=== PATIENT | female | born 1950 | race Caucasian/White ===

== ENCOUNTER 2022-08-14 11:31 | Emergency (ER) | payer MEDICARE, BC, SELFPAY ==
--- NOTE | ~2022-08-14 | XR_ITS ---
EXAMINATION: XR chest 2V DATE: 08/14/2022 12:16 INDICATION: Cough. TECHNIQUE: Frontal and lateral views of the chest were obtained. COMPARISON: Chest single view 07/04/2017 FINDINGS: There is mild atelectasis in left lower lung zone. No pleural effusion or pneumothorax. The heart size is normal. IMPRESSION: 1. Mild atelectasis in left lower lung zone. Reviewed, dictated and finalized at location A. COMMUNICATIONS SUPPORT
[2022-08-14 11:46] VITALS: BP 129/75; PULSE 74; RESP 18; TEMP 36.7; O2SAT 97
--- NOTE | 2022-08-14 12:03 | ED.URI ---
HPI - URI/Sore Throat General Chief Complaint: Upper Respiratory Infection Stated Complaint: congestion,cough Time Seen by Provider: 08/14/22 11:36 Source: patient Mode of arrival: ambulatory Limitations: no limitations History of Present Illness HPI Narrative: 72-year-old female presents to [facility] with complaints of nasal congestion, cough, intermittent wheezing and left ear pressure for the past 2 days. Patient has been taking rwrg-[id number]-[id number] Sudafed and Robitussin with minimal relief. Patient is a smoker. Patient reports that she takes Remicade due to history of Crohn's and her primary care provider requested that she receive a COVID and influenza test. Patient reports that she completed a negative home COVID test today. Patient denies fever, body aches, chills, nausea, vomiting or diarrhea or shortness of breath MD elicited complaint: rhinorrhea and nasal congestion Onset (ago): day(s) (2) Able to tolerate fluids by mouth: Yes Exacerbating factors: nothing Relieving factors: nothing Treatments prior to arrival: cold medicine Related Data Home Medications Medication Instructions Recorded Confirmed atorvastatin 80 mg tablet mg 08/14/22 clopidogrel 75 mg tablet mg 08/14/22 pantoprazole 20 mg tablet,delayed mg PO 08/14/22 release Allergies Allergy/AdvReac Type Severity Reaction Status Date / Time Penicillins Allergy Unknown Verified 07/04/17 18:50 Review of Systems Constitutional: Constitutional: Denies chills, Denies fatigue, Denies fever(s) and Denies weakness ENT: Denies vertigo, Denies dizziness, Denies epistaxis, Reports nasal congestion and Denies sore throat Cardiovascular: Cardiovascular: Denies chest pain Respiratory: Respiratory: Reports cough, Denies dyspnea and Reports wheezing Gastrointestinal: Gastrointestinal: Denies diarrhea, Denies nausea and Denies vomiting Integumentary/Breasts: Skin/Breast: Denies rash PMFSH Social History Social History (Updated 08/14/22 @ 12:05 by Becky Ervin APRN) Smoking status: Current every day smoker Comments At time of signature, I agree with nursing past medical, surgical, social and family history. There is no relevant family history pertinent to the presenting complaint. Exam Const: General: healthy appearing and no acute distress Nutritional Appearance: well nourished Orientation/consciousness: patient oriented x3 Limitations: no limitations HENMT: Head: normal to inspection Ears: external ears normal, TM's normal bilaterally and EAC's normal Face and sinus: normal facial exam Mouth: Yes lip normal Throat: posterior oropharynx normal and uvula midline Other: Mild nasal congestion noted bilaterally Eyes: Conjunctivae: conjunctivae normal Resp: Effort & Inspection: normal respiratory effort, not labored and not tachypneic Auscultation: diminished lung sounds diffuse Cardio: Rate: regular rate Rhythm: regular rhythm Heart sounds: no murmurs Skin: General skin exam: normal color Rashes: no rashes Neuro: General: patient oriented x3 Speech: normal speech Psych: Affect: normal affect Attitude: cooperative Course Course Level of Care: Express Care Visit Vital Signs Vital signs: Vital Signs Temperature 36.7 C 08/14/22 11:46 Pulse Rate 74 08/14/22 11:46 Respiratory Rate 18 08/14/22 11:46 Blood Pressure 129/75 08/14/22 11:46 Pulse Oximetry 97 08/14/22 11:46 Oxygen Delivery Room Air 08/14/22 11:46 Temperature 36.7 C 08/14/22 11:46 Pulse Rate 74 08/14/22 11:46 Respiratory Rate 18 08/14/22 11:46 Blood Pressure 129/75 08/14/22 11:46 Pulse Oximetry 97 08/14/22 11:46 Oxygen Delivery Room Air 08/14/22 11:46 MDM - URI/Sore Throat MDM Narrative Medical decision making narrative: Discussed chest x-ray results with patient. Instructed patient to follow-up with primary care provider concerning chest x-ray results and current symptoms. Patient agrees to take the prescriptio
== END 2022-08-14 12:42 | disposition home or self-care (01) ==
PROVIDERS: Emergency Provider Nurse Practitioner Family
DX: J06.9 Acute upper respiratory infection, unspecified (principal); J98.11 Atelectasis; F17.200 Nicotine dependence, unspecified, uncomplicated; K50.90 Crohn's disease, unspecified, without complications
CPT/HCPCS: 71046; 87804; 99213; G0463

== ENCOUNTER 2022-09-21 17:37 | Emergency (ER) | payer MEDICARE, BC, SELFPAY ==
--- NOTE | ~2022-09-21 | XR_ITS ---
EXAMINATION: XR knee LT min 4V DATE: 09/21/2022 18:08 INDICATION: Left knee trauma TECHNIQUE: Anteroposterior, 2 oblique, sunrise and crosstable lateral views of the left knee were obt ained COMPARISON: None. FINDINGS: Alignment is normal. No fracture. Joint spaces appear normal on nonweightbearing imaging. Suggestion of subarticular cystlike change indicative of overlying chondromalacia at the medial side of the lat eral trochlea on the sunrise projection. No joint effusion/layering lipohemarthrosis. Soft tissues ar e unremarkable. IMPRESSION: 1. No left knee joint effusion or acute osseous abnormality. Reviewed, dictated and finalized at location A. [facility] [employer]
--- NOTE | 2022-09-21 17:44 | ED.LOWEXIN ---
HPI - Extremity Injury (Lower) General Chief Complaint: Extremity Injury, Lower Stated Complaint: Lt Knee Pain Due to Fall Time Seen by Provider: 09/21/22 17:44 Source: patient Mode of arrival: ambulatory Limitations: no limitations History of Present Illness HPI Narrative: 72-year-old female presents with complaint of pain to left knee. Patient reports that she was carrying laundry basket full of clothes today and the handle of the laundry basket broke causing her to fall onto her left knee. Patient is ambulatory with slight limp. Reports pain is worse when going down stairs. Did not take any vwzk-aad-[id number] pain medications prior to arrival she did not feel that she needed it. Range of motion and distal neurovascularly intact. All systems reviewed and negative except as noted above. Related Data Home Medications Medication Instructions Recorded Confirmed atorvastatin 80 mg tablet mg 08/14/22 clopidogrel 75 mg tablet mg 08/14/22 pantoprazole 20 mg tablet,delayed mg PO 08/14/22 release Remicade See Rx Instructions .Route .COMPLEX 09/21/22 09/21/22 aspirin 81 mg capsule 81 mg PO DAILY 09/21/22 09/21/22 Allergies Allergy/AdvReac Type Severity Reaction Status Date / Time Penicillins Allergy Unknown Unknown Verified 09/21/22 17:54 Review of Systems Review of Systems: CONSTITUTIONAL: Denies fever, chills, or sweats. EYES: Denies visual changes, redness, or discharge. ENT: Denies rhinorrhea, congestion, sore throat, or otalgia. CARDIOVASCULAR: Denies chest pain, palpitations, or edema. RESPIRATORY: Denies cough or dyspnea. GASTROINTESTINAL: Denies abdominal pain, nausea, vomiting, or diarrhea. GENITOURINARY: Denies dysuria or hematuria. SKIN: Denies rash or itching. MUSCULOSKELETAL: Reports pain to left knee. NEUROLOGIC: Denies headache, numbness, or weakness. PSYCHIATRIC: Denies anxiety or depression. All other systems reviewed are negative, except as documented in HPI. PMFSH Social History Social History (Updated 08/14/22 @ 12:05 by Becky Ervin, BABAK) Smoking status: Current every day smoker Comments At time of signature, agree with nursing past medical, surgical, social and family history. There is no relevant family history pertinent to the presenting complaint. Exam Narrative: GENERAL: This is a well-nourished, well-developed patient, in no apparent distress. HEAD: normocephalic, atraumatic. EYES: PERRL. Sclera clear/white. Vision is grossly intact. EARS: External ears normal NOSE: External nose normal NECK: Neck supple, non-tender without lymphadenopathy, masses or thyromegaly. CARDIOVASCULAR: Regular rate and rhythm without murmurs, gallops, or rubs. RESPIRATORY: Clear to auscultation. Breath sounds equal bilaterally. No wheezes, rales, or rhonchi. SKIN: warm, Dry, intact with no suspicious lesions or rash, good texture and turgor. NEURO: awake, alert, and oriented to person, place and time. There were no obvious focal neurologic abnormalities. EXTREMITIES: Tender to anterior aspect knee over patella. No swelling noted. No instability. Negative anterior posterior drawer testing. Course Course Level of Care: Express Care Visit Vital Signs Vital signs: Reviewed MDM - Extremity Injury (Lower) MDM Narrative Medical decision making narrative: Patient is aware of diagnosis, understands and agrees to treatment plan. Anticipatory guidance given. Patient agrees to follow-up as directed and is aware of reasons to seek care at the emergency department. Portions of this record may have been created with voice recognition software discussed x-ray results with pt and her daughter. neg for fx. placed in mauro wrap by KYLE Barber. recommend follow up with PCP if pain not improving. Imaging Data My impression: Agree with radiologist Radiologist's impression: EXAMINATION: XR knee LT min 4V DATE: 09/21/2022 18:08 INDICATION: Left knee trauma TECHNIQUE: Anteroposterior,
[2022-09-21 18:01] VITALS: BP 104/62; PULSE 84; RESP 18; TEMP 36.5; O2SAT 96
== END 2022-09-21 18:39 | disposition home or self-care (01) ==
PROVIDERS: Emergency Provider Nurse Practitioner Family
DX: S80.02XA Contusion of left knee, initial encounter (principal); F17.200 Nicotine dependence, unspecified, uncomplicated; W18.39XA Other fall on same level, initial encounter
CPT/HCPCS: 73564; 99213; G0463

== ENCOUNTER 2022-11-23 09:24 | Inpatient (IN) | payer MEDICARE, BC, SELFPAY ==
[2022-11-23] VITALS (24 sets, daily range): BP systolic 79–131; BP diastolic 36–70; PULSE 61–77; RESP 14–22; TEMP 36.8–36.9; O2SAT 94–100; BMI 24.6
--- NOTE | ~2022-11-23 | XR_ITS ---
EXAMINATION: XR chest 2V DATE: 11/23/2022 10:05 INDICATION: Weakness TECHNIQUE: frontal and lateral views of the chest were obtained. COMPARISON: Chest radiograph dated 08/14/2022 FINDINGS: No change in mild linear atelectasis/scarring at the left lung base. No new airspace opacities, pulmo nary edema, pleural effusion or pneumothorax. The cardiomediastinal silhouette is normal. Mild thorac ic spondylosis. IMPRESSION: 1. Unchanged mild left basilar atelectasis/scarring. Reviewed, dictated and finalized at location A.
--- NOTE | ~2022-11-23 | CT_ITS ---
CT head without contrast Indication: Headache, weakness COMPARISON: 07/04/2017 Technique: Serial scans were obtained through the brain without the administration of contrast. Dose reduction technique was used on this scan by utilizing automated exposure control and iterative recon struction technique. The dose-length product (DLP) was 605.33 mGy-cm. Findings: There is no evidence of intracranial hemorrhage, mass lesion, or acute infarct. The ventri cles and subarachnoid spaces are unremarkable.. Mild lateral attenuation regions are seen within the periventricular white matter bilaterally, likely representing changes from chronic microvascular isch emic disease. There is no evidence of edema, mass effect or midline shift. The visualized paranasal sinuses and mastoid air cells are clear. Impression: No intracranial hemorrhage, mass, or acute infarct. Mild chronic white matter changes, as above. Reviewed, dictated and finalized at location . Impression: No intracranial hemorrhage, mass, or acute infarct. Mild chronic white matter changes, as above.
--- NOTE | ~2022-11-23 | XR_ITS ---
XR lumbar spine min 4V 11/23/2022 12:09 Indication: Low back pain for 3 days. No acute injury. Procedure: 5 views lumbar spine Comparison: No prior studies for comparison. Findings: There is disc narrowing at L2-3 through L4-5. There is facet hypertrophy at L4-5 and L5-S1. Vertebral body heights are maintained. There is atherosclerosis of the aorta and iliac arteries. The re is levoscoliosis of the lumbar spine centered at L3. Sacral foramen are symmetric. Impression: 1: Severe lumbar spondylosis with levoscoliosis. Reviewed, dictated and finalized at location L. Impression: 1: Severe lumbar spondylosis with levoscoliosis.
--- NOTE | 2022-11-23 09:40 | ECG_ITS ---
Measurements Intervals [place] Rate: 74 P: 66 MA: 143 QRS: -18 QRSD: 66 T: 58 QT: 381 QTc: 425 Interpretive Statements SINUS RHYTHM POSSIBLE LEFT ATRIAL ENLARGEMENT RSR' IN V1 OR V2, PROBABLY NORMAL VARIANT LOW VOLTAGE- PRECORDIAL LEADS BASELINE ARTIFACT- I, III, AVR, AVL, AVF, V1-V6 BORDERLINE ECG NO PREVIOUS ECG AVAILABLE FOR COMPARISON Electronically Signed On 11-23-2022 10:05:23 CDT by Jerardo Kaufman D.O.
[2022-11-23 09:59] LABS: Basophils Percent Auto 0.9 % (0.2-1.2); Eosinophils Percent Auto 0.3 % (0-4.4); Hematocrit 43.3 % (37.0-47.0); Hemoglobin 14.2 g/dL (12.0-15.0); Immature Granulocyte Absolute 0.01 K/mm3 (0.00-0.031); Immature Granulocyte Percent A 0.3 % (0-0.5); Lymphocytes Absolute Auto 0.96 K/mm3 (0.9-3.2); Lymphocytes Percent Auto 27.4 % (18.3-44.2); Mean Corpuscular HGB Conc 32.8 g/dl (32-36); Mean Corpuscular Volume 94.5 fl (80-100); Mean Platelet Volume 9.8 fl (7.4-10.4); Monocytes Absolute Auto 0.6 K/mm3 (0.1-0.6); Monocytes Percent Auto 17.7 % (2.6-8.5); Neutrophils Absolute Auto 1.9 K/mm3 (1.3-6.7); Neutrophils Percent Auto 53.4 % (45.5-73.1); Platelet Count Result 145 k/mm3 (150-375); Red Blood Count 4.58 M/mm3 (4.2-5.4); Red Cell Distribution Width 13.7 % (11.5-14.5); White Blood Count 3.5 K/mm3 (4.5-10.0)
--- NOTE | 2022-11-23 09:59 | ED.GENADULT ---
HPI - General Adult General Chief complaint: Neuro Symptoms/Deficit <Odalys Watkins PA-C - Last Filed: 11/23/22 19:00> Stated complaint: weakness since last night, COLE since <Odalys Watkins PA-C - Last Filed: 11/23/22 19:00> Time Seen by Provider: 11/23/22 09:35 <Odalys Watkins PA-C - Last Filed: 11/23/22 19:00> Source: patient <LIOR Narayanan Last Filed: 11/23/22 19:00> Mode of arrival: ambulatory <LIOR Narayanan Last Filed: 11/23/22 19:00> Limitations: no limitations <LIOR Narayanan Last Filed: 11/23/22 19:00> History of Present Illness HPI narrative: Patient is a 72 y/o female who presents to the ED with multiple complaints. Patient reports feeling generally weak in her arms and legs. Daughter at bedside reports patient had mild difficulty walking and unsteadiness last night as she just felt weak. No focal weakness or weakness in only 1 side of arm or leg. She also reports having a headache for the past couple of days and pain across her lower back. She has been taking Tylenol for the pain without much relief. Patient felt persistently weak this morning prompting her presentation. Patient denies any chest pain, shortness of breath, cough or cold symptoms, numbness, vision changes, abdominal pain, N/V, urinary symptoms, fevers, recent fall or injury. <Odalys Watkins PA-C - Last Filed: 11/23/22 19:00> Related Data Home medications: Home Medications Medication Instructions Recorded Confirmed atorvastatin 80 mg tablet 80 mg PO HS 08/14/22 11/23/22 clopidogrel 75 mg tablet 75 mg PO HS 08/14/22 11/23/22 pantoprazole 20 mg tablet,delayed 20 mg PO DAILY 08/14/22 11/23/22 release aspirin 81 mg capsule 81 mg PO DAILY 09/21/22 11/23/22 cholecalciferol (vitamin D3) 25 25 mcg PO DAILY 11/23/22 11/23/22 mcg (1,000 unit) tablet fexofenadine 180 mg tablet 180 mg PO DAILY PRN Allergy 11/23/22 11/23/22 Symptoms fluticasone propionate 50 1 spray intranasal DAILY 11/23/22 11/23/22 mcg/actuation nasal spray,suspension infliximab 100 mg intravenous 100 mg IV [id number] 11/23/22 11/23/22 solution multivitamin with minerals-folic 1 tablet PO DAILY 11/23/22 11/23/22 acid 0.4 mg tablet pseudoephedrine HCl 60 mg tablet 60 mg PO Q4-6H PRN sinus congestion 11/23/22 11/23/22 <Odalys Watkins PA-C - Last Filed: 11/23/22 19:00> Allergies/adverse reactions: Allergies Allergy/AdvReac Type Severity Reaction Status Date / Time Penicillins Allergy Unknown Unknown Verified 11/23/22 16:43 <Odalys Watkins PA-C - Last Filed: 11/23/22 19:00> Review of Systems Review of Systems: CONSTITUTIONAL: Denies fever, chills, or sweats. EYES: Denies visual changes. ENT: Denies rhinorrhea, congestion, sore throat. CARDIOVASCULAR: Denies chest pain. RESPIRATORY: Denies cough or dyspnea. GASTROINTESTINAL: Denies abdominal pain, nausea, vomiting. GENITOURINARY: Denies dysuria or hematuria. MUSCULOSKELETAL: See HPI. NEUROLOGIC: See HPI. <Odalys Watkins PA-C - Last Filed: 11/23/22 19:00> All systems reviewed & are unremarkable except as noted in HPI and below <Odalys Watkins PA-C - Last Filed: 11/23/22 19:00> [facility] Past Medical History Medical History: Medical History (Updated 11/24/22 @ 07:38 by LOLIS Valera) Carpal tunnel syndrome Crohn disease CVA (cerebral vascular accident) GERD (gastroesophageal reflux disease) History of TIA (transient ischemic attack) HLD (hyperlipidemia) Shoulder fracture, left <LIOR Narayanan Last Filed: 11/23/22 19:00> Surgical History Surgical History: Surgical History (Updated 11/23/22 @ 19:18 by Karmen Belcher NP) H/O cardiac radiofrequency ablation H/O cataract extraction History of appendectomy History of colon resection x2 due to Crohn's disease <Odalys Watkins PA-C - Last Filed: 11/23/22 19:0
[2022-11-23 10:07] LABS: Alanine Aminotransferase 48 U/L (6-35); Albumin Level 4.7 g/dL (3.5-5.1); Alkaline Phosphatase 96 U/L (38-126); Anion Gap 10 mmol/L (8-16); Aspartate Amino Transferase 71 U/L (14-36); Bilirubin,Total 1.4 mg/dL (0.2-1.3); Blood Urea Nitrogen 10 mg/dL (7-17); Calcium 8.8 mg/dL (8.4-10.2); Carbon Dioxide 25 mmol/L (22-30); Chloride 99 mmol/L (98-107); Estimated CRCL calculation 35 ml/min; Estimated Glomerular Filt Rate 49; Glucose 129 mg/dL (65-110); Potassium 4.3 mmol/L (3.4-5.0); Sodium 134 mmol/L (137-145)
[2022-11-23 10:39] LABS: Lactic Acid Reflex 1.2 mmol/L (0.7-2.0); Magnesium 1.8 mg/dL (1.6-2.3); Prothrombin Time 13.2 Seconds (11.1-14.7)
[2022-11-23 10:40] LABS: Partial Thromboplastin Time 34.3 SECONDS (22.3-36.8)
[2022-11-23] MEDS: SODIUM CHLORIDE 0.9% IV 1,000 ML 999 ML IV CONT ×2 (10:46→12:49)
[2022-11-23 10:51] LABS: Troponin I < 0.012 ng/mL (0.000-0.034)
[2022-11-23 11:09] LABS: Appearance Urine Cloudy (Clear); Bacteria Urine Rare /hpf; Bilirubin Urine Negative (Negative); Blood Urine Negative (Negative); Color Urine Yellow (Yellow); Glucose Urine UA Negative (Negative); Hyaline Casts Urine Present /lpf; Ketones Urine 1+ mg/dL (Negative); Leukocyte Esterase Ur 1+ LEU/UL (Negative); Mucus Urine Present /lpf; Nitrate Urine Negative (Negative); Non Pathogenic Casts >20; Protein Urine 1+ mg/dL (Negative); Specific Grav Ur 1.019 (1.001-1.035); Squamous Epithelial Cell Urine Moderate /hpf (Few)
[2022-11-23 11:10] LABS: Add Urine Microscopic? YES
[2022-11-23 11:37] LABS: Influenza A QL RT-PCR Negative (Negative); Influenza B QL RT-PCR Negative (Negative); SARS-CoV-2 RNA PCR Positive (Negative)
[2022-11-23] MEDS: ACETAMINOPHEN 500 MG TABLET 1000 MG PO (11:49)
--- NOTE | 2022-11-23 14:33 | PM.IMHP ---
H&P: HPI History of Present Illness Date/Time: 11/23/22 14:33 Chief Complaint: Weakness Narrative: this is a 72-year-old female patient who came to the emergency room with multiple complaints. The patient was complaining of body aches and muscle wakes with generalized weakness. The daughter was at the bedside earlier in stating that the patient had difficulty walking and was unsteady last night. She had no focal weakness. She reported a headache over the last couple days. She denied any sore throat. She denies any cough. No nausea vomiting or diarrhea. No urinary symptoms. The patient has been taking Tylenol for the discomfort without much relief. The patient felt progressively more weak this morning. She denied any chest pain or palpitations. Her white count was 3.5. Platelet count 145. Sodium is 134 and creatinine 1.10. She previously had a normal creatinine. Glucose is 129. Total bilirubin is 1.4 with AST 71. The patient was found to be positive for UTI. She is also found to be positive for COVID. EKG was sinus rhythm. Chest x-ray unchanged mild left basilar atelectasis scarring. Head CT was read as no intracranial hemorrhage mass or acute infarct. Mild chronic white matter changes. Lumbar spine severe lumbar spondylosis with levoscoliosis. The patient was given 2 L of IV fluids and Tylenol. Her lowest blood pressure was 79/66. However it did improve with 2 L of fluid has come up to 115/56. The patient is currently on room air without any distress. The patient stated that she has been fully vaccinated for COVID. She stated that she has no known contacts that were COVID positive. I did explain to her that she was positive for COVID today. The patient was given Levaquin for the UTI.The patient is being admitted to observation status on the date of service of 11/23/2022. Review of Systems Review of Systems: All systems reviewed & are unremarkable except as noted in HPI and below Constitutional: Constitutional: Reports as per HPI and Reports no additional constitutional complaints Eyes: Eyes: Reports as per HPI and Reports no additional eye complaints ENT: Reports system reviewed and no additional complaints, except as documented and Reports Normal hearing present Cardiovascular: Cardiovascular: Reports no additional cardiovascular complaints Respiratory: Respiratory: Reports no additional respiratory complaints and Reports no additional respiratory complaints Gastrointestinal: Gastrointestinal: Reports as per HPI and Reports no additional gastrointestinal complaints Musculoskeletal: Musculoskeletal: Reports no additional musculoskeletal complaints Integumentary/Breasts: Skin/Breast: Reports system reviewed and no additional complaints, except as docu and Reports as per HPI Neurologic: Reports system reviewed and no additional complaints, except as documented, Reports as per HPI and Reports Normal hearing present Psychiatric: Psychiatric: Reports no additional psychiatric complaints and Reports as per HPI Endocrine: Endocrine: Reports no additional endocrine complaints Hematologic/Lymphatic: Hematologic/Lymphatic: Reports no additional hematologic/lymphatic complaints Allergic/Immunologic: Allergic/Immunologic: Reports no additional allergic/immunologic complaints [facility] Past Medical History Medical History (Updated 11/23/22 @ 19:18 by Karmen Belcher NP) Carpal tunnel syndrome Crohn disease CVA (cerebral vascular accident) GERD (gastroesophageal reflux disease) History of TIA (transient ischemic attack) HLD (hyperlipidemia) Shoulder fracture, left Surgical History Surgical History (Updated 11/23/22 @ 19:18 by Karmen Belcher NP) H/O cardiac radiofrequency ablation H/O cataract extraction History of appendectomy History of colon resection x2 due to Crohn's disease Family History Family History Father Heart disease Sibling He
[2022-11-23] MEDS: SODIUM CHLORIDE 0.9% IV 1,000 ML 100 ML IV CONT (15:33)
--- NOTE | 2022-11-23 16:20 | ADMGEN ---
This patient, Allison Lopez, was admitted to Medical Room 245-. Patient/family oriented to hospital policies and general routines including ID bracelet, bed and alarms, visiting hours, pain management, procedures, bathroom and other care routines, personal items, smoking policy, room service/diet, and visiting hours. Information on how to activate the Rapid Response Team has been discussed. Patient/Family are encouraged to report perceived risks to care and to ask questions if they do not understand what they are told or what they should do.
[2022-11-23] MEDS: ACETAMINOPHEN 325 MG TABLET 650 MG PO ×2 (17:34→22:24)
[2022-11-23] MEDS: ATORVASTATIN 40 MG TABLET 80 MG PO (20:43)
[2022-11-23] MEDS: CLOPIDOGREL BISULFATE 75 MG TABLET PO (20:43)
[2022-11-24] VITALS (15 sets, daily range): BP systolic 71–123; BP diastolic 49–69; PULSE 57–96; RESP 16; TEMP 36.4–36.9; O2SAT 94–98
[2022-11-24 05:05] LABS: Basophils Percent Auto 0.4 % (0.2-1.2); Eosinophils Percent Auto 0.4 % (0-4.4); Hematocrit 40.9 % (37.0-47.0); Hemoglobin 13.1 g/dL (12.0-15.0); Immature Granulocyte Absolute 0.03 K/mm3 (0.00-0.031); Immature Granulocyte Percent A 1.1 % (0-0.5); Immature Platelet Fraction Pct 3.9 % (0.9-11.2); Lymphocytes Absolute Auto 1.43 K/mm3 (0.9-3.2); Lymphocytes Percent Auto 53.6 % (18.3-44.2); Mean Corpuscular Hemoglobin 31.1 pg (26-34); Mean Corpuscular Volume 97.1 fl (80-100); Monocytes Absolute Auto 0.5 K/mm3 (0.1-0.6); Monocytes Percent Auto 17.6 % (2.6-8.5); Neutrophils Absolute Auto 0.7 K/mm3 (1.3-6.7); Neutrophils Percent Auto 26.9 % (45.5-73.1); Platelet Count Result 125 k/mm3 (150-375); Red Blood Count 4.21 M/mm3 (4.2-5.4); White Blood Count 2.7 K/mm3 (4.5-10.0)
[2022-11-24 05:14] LABS: Alanine Aminotransferase 41 U/L (6-35); Albumin Level 3.9 g/dL (3.5-5.1); Alkaline Phosphatase 71 U/L (38-126); Anion Gap 4 mmol/L (8-16); Aspartate Amino Transferase 67 U/L (14-36); Bilirubin,Total 1.1 mg/dL (0.2-1.3); Blood Urea Nitrogen 12 mg/dL (7-17); Calcium 8.2 mg/dL (8.4-10.2); Carbon Dioxide 26 mmol/L (22-30); Chloride 108 mmol/L (98-107); Estimated CRCL calculation 43 ml/min; Estimated Glomerular Filt Rate > 60; Glucose 92 mg/dL (65-110); Magnesium 1.8 mg/dL (1.6-2.3); Potassium 4.6 mmol/L (3.4-5.0); Sodium 138 mmol/L (137-145)
[2022-11-24 05:15] LABS: Lactic Acid Reflex 0.7 mmol/L (0.7-2.0)
[2022-11-24] MEDS: CHOLECALCIFEROL 1,000 UNITS TABLET 1000 UNITS PO (08:48)
[2022-11-24] MEDS: ENOXAPARIN 40 MG/0.4 ML SYRINGE SUB-Q (08:48)
[2022-11-24] MEDS: ASPIRIN 81 MG ENTERIC TABLET PO (08:48)
[2022-11-24] MEDS: FLUTICASONE PROPIONATE 0.05% NA SPR 16 GM BTL (*BKC) 1 SPRAY NASAL (08:49)
[2022-11-24] MEDS: THERAPEUTIC MULTIVITAMINS/MINERALS TAB (*BKC) 1 TABLET PO (08:50)
[2022-11-24] MEDS: PANTOPRAZOLE SOD SESQUIHYDRATE 20 MG TAB PO (08:50)
[2022-11-24] MEDS: ACETAMINOPHEN 325 MG TABLET 650 MG PO ×2 (08:50→21:27)
--- NOTE | 2022-11-24 15:10 | PM.IMPN ---
Progress Note: A&P Assessment and Plan (1) COVID-19: Code(s): U07.1 - COVID-19 Status: Acute Assessment and Plan: Presented to the ED with generalized weakness, body aches Tested positive on 11/23/22 Contact and droplet isolation supportive care Currently on room air albuterol inhaler Tylenol p.r.n. liver enzymes are mildly elevated, and trending down (2) UTI (urinary tract infection): Qualifiers: Hematuria presence: without hematuria Urinary tract infection type: acute cystitis Qualified Code(s): N30.00 - Acute cystitis without hematuria Code(s): N39.0 - Urinary tract infection, site not specified Status: Acute Assessment and Plan: UA appears to be infectious No complaints of urinary dysfunction, however with weakness, and gait instablitiy will treat continue with Levaquin blood cultures pending urine cultures pending Adjust antibiotic with culture results and sensitivities (3) Orthostatic hypotension: Code(s): I95.1 - Orthostatic hypotension Status: Acute Assessment and Plan: Supine 111/57, sitting 88/67, standing 87/36, repeat showed hypotension with standing Start patient on midodrine, if fluids are not affective Fluid bolus given in ED, repeat 1 L bolus as she was complaining of diarrhea over the last day or so Could also be dehydration related Repeat orthostatic blood pressures today (4) Crohn disease: Qualifiers: Digestive disease complication type: without complication Gastrointestinal tract location: unspecified location Qualified Code(s): K50.90 - Crohn's disease, unspecified, without complications Code(s): K50.90 - Crohn's disease, unspecified, without complications Status: Acute Assessment and Plan: Controlled and chronic No signs of exacerbation (5) HLD (hyperlipidemia): Qualifiers: Hyperlipidemia type: moderate mixed hyperlipidemia not requiring statin therapy Qualified Code(s): E78.2 - Mixed hyperlipidemia Code(s): E78.5 - Hyperlipidemia, unspecified Status: Acute Assessment and Plan: Continue with atorvastatin (6) GERD (gastroesophageal reflux disease): Qualifiers: Esophagitis presence: without esophagitis Qualified Code(s): K21.9 - Gastro-esophageal reflux disease without esophagitis Code(s): K21.9 - Gastro-esophageal reflux disease without esophagitis Status: Acute Assessment and Plan: continue with pantoprazole (7) History of TIA (transient ischemic attack): Code(s): Z86.73 - Personal history of transient ischemic attack (TIA), and cerebral infarction without residual deficits Status: Acute Assessment and Plan: continue with Plavix and aspirin Time Spent With Patient Time: 48 minutes Time with patient: Greater than 35 minutes Subjective Date/time seen: 11/24/22 1130 Interval history: 11/24/221129 Patient seems to be doing okay. She denies any current chest pain, shortness a breath, nausea, vomiting, diarrhea constipation. She did state that she was having headache and she also stated that she felt like her gait and walk was doing better as well. She has been able to get up and down to the bathroom and has been doing well getting around the room. Currently waiting grown culture results at this time. Orthostatic blood pressures did note that she is orthostatic was started on midodrine at this time as well. 11/23/22? 14:33 This is a 72-year-old female patient who came to the emergency room with multiple complaints.? The patient was complaining of body aches and muscle wakes with generalized weakness.? The daughter was at the bedside earlier in stating that the patient had difficulty walking and was unsteady last night.? She had no focal weakness.? She reported a headache over the last couple days.?
--- NOTE | 2022-11-24 15:10 | P.PNIM_ITS ---
Progress Note: A&P Assessment and Plan (1) COVID-19: Code(s): U07.1 - COVID-19 Status: Acute Assessment and Plan: * Presented to the ED with generalized weakness, body aches * Tested positive on 11/23/22 * Contact and droplet isolation * supportive care * Currently on room air * albuterol inhaler * Tylenol p.r.n. * liver enzymes are mildly elevated, and trending down (2) UTI (urinary tract infection): Qualifiers: Hematuria presence: without hematuria Urinary tract infection type: acute cystitis Qualified Code(s): N30.00 - Acute cystitis without hematuria Code(s): N39.0 - Urinary tract infection, site not specified Status: Acute Assessment and Plan: * UA appears to be infectious * No complaints of urinary dysfunction, however with weakness, and gait instablitiy will treat * continue with Levaquin * blood cultures pending * urine cultures pending * Adjust antibiotic with culture results and sensitivities (3) Orthostatic hypotension: Code(s): I95.1 - Orthostatic hypotension Status: Acute Assessment and Plan: * Supine 111/57, sitting 88/67, standing 87/36, repeat showed hypotension with standing * Start patient on midodrine, if fluids are not affective * Fluid bolus given in ED, repeat 1 L bolus as she was complaining of diarrhea over the last day or so * Could also be dehydration related * Repeat orthostatic blood pressures today (4) Crohn disease: Qualifiers: Digestive disease complication type: without complication Gastrointestinal tract location: unspecified location Qualified Code(s): K50.90 - Crohn's disease, unspecified, without complications Code(s): K50.90 - Crohn's disease, unspecified, without complications Status: Acute Assessment and Plan: * Controlled and chronic * No signs of exacerbation (5) HLD (hyperlipidemia): Qualifiers: Hyperlipidemia type: moderate mixed hyperlipidemia not requiring statin therapy Qualified Code(s): E78.2 - Mixed hyperlipidemia Code(s): E78.5 - Hyperlipidemia, unspecified Status: Acute Assessment and Plan: * Continue with atorvastatin (6) GERD (gastroesophageal reflux disease): Qualifiers: Esophagitis presence: without esophagitis Qualified Code(s): K21.9 - Gastro-esophageal reflux disease without esophagitis Code(s): K21.9 - Gastro-esophageal reflux disease without esophagitis Status: Acute Assessment and Plan: * continue with pantoprazole (7) History of TIA (transient ischemic attack): Code(s): Z86.73 - Personal history of transient ischemic attack (TIA), and cerebral infarction without residual deficits Status: Acute Assessment and Plan: * continue with Plavix and aspirin Time Spent With Patient Time: 48 minutes Time with patient: Greater than 35 minutes Subjective Date/time seen: 11/24/221129 Interval history: 11/24/221129 Patient seems to be doing okay. She denies any current chest pain, shortness a breath, nausea, vomiting, diarrhea constipation. She did state that she was having headache and she also stated that she felt like her gait and walk was doing better as well. She has been able to get up and down to the bathroom and has been doing well getting around the room. Currently waiting grown culture results at this
[2022-11-24] MEDS: SODIUM CHLORIDE 0.9% IV 1,000 ML 999 ML IV CONT (16:19)
[2022-11-24] MEDS: ATORVASTATIN 40 MG TABLET 80 MG PO (21:27)
[2022-11-24] MEDS: CLOPIDOGREL BISULFATE 75 MG TABLET PO (21:27)
[2022-11-25] VITALS: PULSE 62
[2022-11-25 04:00] VITALS: PULSE 56
[2022-11-25 04:56] VITALS: BP 108/56; PULSE 67; RESP 16; TEMP 36.9; O2SAT 97
[2022-11-25 05:51] LABS: Basophils Percent Auto 0.6 % (0.2-1.2); Eosinophils Percent Auto 1.2 % (0-4.4); Hematocrit 40.8 % (37.0-47.0); Hemoglobin 13.5 g/dL (12.0-15.0); Immature Granulocyte Absolute 0.01 K/mm3 (0.00-0.031); Immature Granulocyte Percent A 0.3 % (0-0.5); Lymphocytes Absolute Auto 2.07 K/mm3 (0.9-3.2); Lymphocytes Percent Auto 60.2 % (18.3-44.2); Mean Corpuscular HGB Conc 33.1 g/dl (32-36); Mean Corpuscular Hemoglobin 31.5 pg (26-34); Mean Corpuscular Volume 95.1 fl (80-100); Monocytes Absolute Auto 0.4 K/mm3 (0.1-0.6); Monocytes Percent Auto 10.2 % (2.6-8.5); Neutrophils Percent Auto 27.5 % (45.5-73.1); Platelet Count Result 122 k/mm3 (150-375); Red Blood Count 4.29 M/mm3 (4.2-5.4); White Blood Count 3.4 K/mm3 (4.5-10.0)
[2022-11-25 06:05] LABS: Alanine Aminotransferase 38 U/L (6-35); Albumin Level 3.7 g/dL (3.5-5.1); Alkaline Phosphatase 68 U/L (38-126); Anion Gap 4 mmol/L (8-16); Aspartate Amino Transferase 64 U/L (14-36); Bilirubin,Total 0.8 mg/dL (0.2-1.3); Blood Urea Nitrogen 15 mg/dL (7-17); Carbon Dioxide 28 mmol/L (22-30); Chloride 105 mmol/L (98-107); Estimated CRCL calculation 43 ml/min; Estimated Glomerular Filt Rate > 60; Glucose 100 mg/dL (65-110); Magnesium 1.7 mg/dL (1.6-2.3); Sodium 137 mmol/L (137-145)
[2022-11-25 08:00] VITALS: PULSE 59
[2022-11-25] MEDS: CHOLECALCIFEROL 1,000 UNITS TABLET 1000 UNITS PO (08:04)
[2022-11-25] MEDS: ASPIRIN 81 MG ENTERIC TABLET PO (08:04)
[2022-11-25] MEDS: MIDODRINE HCL 2.5 MG TABLET PO (08:05)
[2022-11-25] MEDS: PANTOPRAZOLE SOD SESQUIHYDRATE 20 MG TAB PO (08:05)
[2022-11-25] MEDS: ENOXAPARIN 40 MG/0.4 ML SYRINGE SUB-Q (08:05)
[2022-11-25] MEDS: THERAPEUTIC MULTIVITAMINS/MINERALS TAB (*BKC) 1 TABLET PO (08:05)
[2022-11-25] MEDS: FLUTICASONE PROPIONATE 0.05% NA SPR 16 GM BTL (*BKC) 1 SPRAY NASAL (08:05)
--- NOTE | 2022-11-25 08:09 | P.PNIM_ITS ---
Progress Note: A&P Assessment and Plan (1) COVID-19: Code(s): U07.1 - COVID-19 Status: Acute Assessment and Plan: * Presented to the ED with generalized weakness, body aches * Tested positive on 11/23/22 * Contact and droplet isolation * supportive care * Currently on room air * albuterol inhaler * Tylenol p.r.n. * liver enzymes are mildly elevated, and trending down (2) UTI (urinary tract infection): Qualifiers: Hematuria presence: without hematuria Urinary tract infection type: acute cystitis Qualified Code(s): N30.00 - Acute cystitis without hematuria Code(s): N39.0 - Urinary tract infection, site not specified Status: Acute Assessment and Plan: * UA appears to be infectious * No complaints of urinary dysfunction, however with weakness, and gait instablitiy will treat * continue with Levaquin * blood cultures pending * urine cultures pending * Adjust antibiotic with culture results and sensitivities * Still waiting for urine culture (3) Orthostatic hypotension: Code(s): I95.1 - Orthostatic hypotension Status: Acute Assessment and Plan: * Supine 111/57, sitting 88/67, standing 87/36, repeat showed hypotension with standing * Start patient on midodrine, if fluids are not affective * Fluid bolus given in ED, repeat 1 L bolus as she was complaining of diarrhea over the last day or so * Could also be dehydration related * Repeat orthostatic blood pressures today (4) Crohn disease: Qualifiers: Gastrointestinal tract location: unspecified location Digestive disease complication type: without complication Qualified Code(s): K50.90 - Crohn's disease, unspecified, without complications Code(s): K50.90 - Crohn's disease, unspecified, without complications Status: Acute Assessment and Plan: * Controlled and chronic * No signs of exacerbation (5) HLD (hyperlipidemia): Qualifiers: Hyperlipidemia type: moderate mixed hyperlipidemia not requiring statin therapy Qualified Code(s): E78.2 - Mixed hyperlipidemia Code(s): E78.5 - Hyperlipidemia, unspecified Status: Acute Assessment and Plan: * Continue with atorvastatin (6) GERD (gastroesophageal reflux disease): Qualifiers: Esophagitis presence: without esophagitis Qualified Code(s): K21.9 - Gastro-esophageal reflux disease without esophagitis Code(s): K21.9 - Gastro-esophageal reflux disease without esophagitis Status: Acute Assessment and Plan: * continue with pantoprazole (7) History of TIA (transient ischemic attack): Code(s): Z86.73 - Personal history of transient ischemic attack (TIA), and cerebral infarction without residual deficits Status: Acute Assessment and Plan: * continue with Plavix and aspirin Time Spent With Patient Time: 38 minutes Time with patient: Greater than 35 minutes Subjective Date/time seen: 11/25/22 08:09 Interval history: 11/25/22 11/24/22 1130 Patient seems to be doing okay. She denies any current chest pain, shortness a breath, nausea, vomiting, diarrhea constipation. She did state that she was meehan ving headache and she also stated that she felt like her gait and walk was doing better as well. She has been able to get up and down to the bathroom and has been doing well getti
--- NOTE | 2022-11-25 08:09 | PM.IMPN ---
Progress Note: A&P Assessment and Plan (1) COVID-19: Code(s): U07.1 - COVID-19 Status: Acute Assessment and Plan: Presented to the ED with generalized weakness, body aches Tested positive on 11/23/22 Contact and droplet isolation supportive care Currently on room air albuterol inhaler Tylenol p.r.n. liver enzymes are mildly elevated, and trending down (2) UTI (urinary tract infection): Qualifiers: Hematuria presence: without hematuria Urinary tract infection type: acute cystitis Qualified Code(s): N30.00 - Acute cystitis without hematuria Code(s): N39.0 - Urinary tract infection, site not specified Status: Acute Assessment and Plan: UA appears to be infectious No complaints of urinary dysfunction, however with weakness, and gait instablitiy will treat continue with Levaquin blood cultures pending urine cultures pending Adjust antibiotic with culture results and sensitivities Still waiting for urine culture (3) Orthostatic hypotension: Code(s): I95.1 - Orthostatic hypotension Status: Acute Assessment and Plan: Supine 111/57, sitting 88/67, standing 87/36, repeat showed hypotension with standing Start patient on midodrine, if fluids are not affective Fluid bolus given in ED, repeat 1 L bolus as she was complaining of diarrhea over the last day or so Could also be dehydration related Repeat orthostatic blood pressures today (4) Crohn disease: Qualifiers: Gastrointestinal tract location: unspecified location Digestive disease complication type: without complication Qualified Code(s): K50.90 - Crohn's disease, unspecified, without complications Code(s): K50.90 - Crohn's disease, unspecified, without complications Status: Acute Assessment and Plan: Controlled and chronic No signs of exacerbation (5) HLD (hyperlipidemia): Qualifiers: Hyperlipidemia type: moderate mixed hyperlipidemia not requiring statin therapy Qualified Code(s): E78.2 - Mixed hyperlipidemia Code(s): E78.5 - Hyperlipidemia, unspecified Status: Acute Assessment and Plan: Continue with atorvastatin (6) GERD (gastroesophageal reflux disease): Qualifiers: Esophagitis presence: without esophagitis Qualified Code(s): K21.9 - Gastro-esophageal reflux disease without esophagitis Code(s): K21.9 - Gastro-esophageal reflux disease without esophagitis Status: Acute Assessment and Plan: continue with pantoprazole (7) History of TIA (transient ischemic attack): Code(s): Z86.73 - Personal history of transient ischemic attack (TIA), and cerebral infarction without residual deficits Status: Acute Assessment and Plan: continue with Plavix and aspirin Time Spent With Patient Time: 38 minutes Time with patient: Greater than 35 minutes Subjective Date/time seen: 11/25/22 08:09 Interval history: 11/25/22 11/24/22 1130 Patient seems to be doing okay. She denies any current chest pain, shortness a breath, nausea, vomiting, diarrhea constipation. She did state that she was having headache and she also stated that she felt like her gait and walk was doing better as well. She has been able to get up and down to the bathroom and has been doing well getting around the room. Currently waiting grown culture results at this time. Orthostatic blood pressures did note that she is orthostatic was started on midodrine at this time as well. 11/23/22? 14:33 This is a 72-year-old female patient who came to the emergency room with multiple complaints.? The patient was complaining of body aches and muscle wakes with generalized weakness.? The daughter was at the bedside earlier in stating that the patient had difficulty walking and was unsteady last night.? She had no focal weakness.
--- NOTE | 2022-11-25 08:15 | P.DS_ITS ---
DS: Admitting Diagnosis Discharge Date 11/25/2215 Admitting Diagnosis Acute UTI, Covid DS: Discharge Diagnosis Discharge Diagnosis (1) COVID-19: Code(s): U07.1 - COVID-19 Status: Acute Assessment and Plan: * Presented to the ED with generalized weakness, body aches * Tested positive on 11/23/22 * Contact and droplet isolation * supportive care * Currently on room air * albuterol inhaler * Tylenol p.r.n. * liver enzymes are mildly elevated, and trending down (2) UTI (urinary tract infection): Qualifiers: Hematuria presence: without hematuria Urinary tract infection type: acute cystitis Qualified Code(s): N30.00 - Acute cystitis without hematuria Code(s): N39.0 - Urinary tract infection, site not specified Status: Acute Assessment and Plan: * UA appears to be infectious * No complaints of urinary dysfunction, however with weakness, and gait instablitiy will treat * continue with Levaquin * blood cultures pending * urine cultures pending * Adjust antibiotic with culture results and sensitivities * Still waiting for urine culture (3) Orthostatic hypotension: Code(s): I95.1 - Orthostatic hypotension Status: Acute Assessment and Plan: * Supine 111/57, sitting 88/67, standing 87/36, repeat showed hypotension with standing * Start patient on midodrine, if fluids are not affective * Fluid bolus given in ED, repeat 1 L bolus as she was complaining of diarrhea over the last day or so * Could also be dehydration related * Repeat orthostatic blood pressures today (4) Crohn disease: Qualifiers: Digestive disease complication type: without complication Gastrointestinal tract location: unspecified location Qualified Code(s): K50.90 - Crohn's disease, unspecified, without complications Code(s): K50.90 - Crohn's disease, unspecified, without complications Status: Acute Assessment and Plan: * Controlled and chronic * No signs of exacerbation (5) HLD (hyperlipidemia): Qualifiers: Hyperlipidemia type: moderate mixed hyperlipidemia not requiring statin therapy Qualified Code(s): E78.2 - Mixed hyperlipidemia Code(s): E78.5 - Hyperlipidemia, unspecified Status: Acute Assessment and Plan: * Continue with atorvastatin (6) GERD (gastroesophageal reflux disease): Qualifiers: Esophagitis presence: without esophagitis Qualified Code(s): K21.9 - Gastro-esophageal reflux disease without esophagitis Code(s): K21.9 - Gastro-esophageal reflux disease without esophagitis Status: Acute Assessment and Plan: * continue with pantoprazole (7) History of TIA (transient ischemic attack): Code(s): Z86.73 - Personal history of transient ischemic attack (TIA), and cerebral infarction without residual deficits Status: Acute Assessment and Plan: * continue with Plavix and aspirin DS: Summary Hospital Course Hospital Course: Patient is a 70-year-old female with a past medical history of TIA, Crohn's disease, hyperlipidemia, GERD who presented the ED with complaints of body aches, generalized weakness, diarrhea, sore throat. Upon arrival to the ED patient was tested for COVID was noted to be positive. UA was also noted to appear infectious. Urine culture has been pending. Patient was started on IV Levaquin. Pat
--- NOTE | 2022-11-25 08:15 | PM.DS ---
DS: Admitting Diagnosis Discharge Date 11/25/22 0815 Admitting Diagnosis Acute UTI, Covid DS: Discharge Diagnosis Discharge Diagnosis (1) COVID-19: Code(s): U07.1 - COVID-19 Status: Acute Assessment and Plan: Presented to the ED with generalized weakness, body aches Tested positive on 11/23/22 Contact and droplet isolation supportive care Currently on room air albuterol inhaler Tylenol p.r.n. liver enzymes are mildly elevated, and trending down (2) UTI (urinary tract infection): Qualifiers: Hematuria presence: without hematuria Urinary tract infection type: acute cystitis Qualified Code(s): N30.00 - Acute cystitis without hematuria Code(s): N39.0 - Urinary tract infection, site not specified Status: Acute Assessment and Plan: UA appears to be infectious No complaints of urinary dysfunction, however with weakness, and gait instablitiy will treat continue with Levaquin blood cultures pending urine cultures pending Adjust antibiotic with culture results and sensitivities Still waiting for urine culture (3) Orthostatic hypotension: Code(s): I95.1 - Orthostatic hypotension Status: Acute Assessment and Plan: Supine 111/57, sitting 88/67, standing 87/36, repeat showed hypotension with standing Start patient on midodrine, if fluids are not affective Fluid bolus given in ED, repeat 1 L bolus as she was complaining of diarrhea over the last day or so Could also be dehydration related Repeat orthostatic blood pressures today (4) Crohn disease: Qualifiers: Digestive disease complication type: without complication Gastrointestinal tract location: unspecified location Qualified Code(s): K50.90 - Crohn's disease, unspecified, without complications Code(s): K50.90 - Crohn's disease, unspecified, without complications Status: Acute Assessment and Plan: Controlled and chronic No signs of exacerbation (5) HLD (hyperlipidemia): Qualifiers: Hyperlipidemia type: moderate mixed hyperlipidemia not requiring statin therapy Qualified Code(s): E78.2 - Mixed hyperlipidemia Code(s): E78.5 - Hyperlipidemia, unspecified Status: Acute Assessment and Plan: Continue with atorvastatin (6) GERD (gastroesophageal reflux disease): Qualifiers: Esophagitis presence: without esophagitis Qualified Code(s): K21.9 - Gastro-esophageal reflux disease without esophagitis Code(s): K21.9 - Gastro-esophageal reflux disease without esophagitis Status: Acute Assessment and Plan: continue with pantoprazole (7) History of TIA (transient ischemic attack): Code(s): Z86.73 - Personal history of transient ischemic attack (TIA), and cerebral infarction without residual deficits Status: Acute Assessment and Plan: continue with Plavix and aspirin DS: Summary Hospital Course Hospital Course: Patient is a 70-year-old female with a past medical history of TIA, Crohn's disease, hyperlipidemia, GERD who presented the ED with complaints of body aches, generalized weakness, diarrhea, sore throat. Upon arrival to the ED patient was tested for COVID was noted to be positive. UA was also noted to appear infectious. Urine culture has been pending. Patient was started on IV Levaquin. Patient also received fluids for orthostatic hypotension. Patient has been started on midodrine for further support. Currently patient states that she feels better than she did and has no complaints including chest pain, shortness a breath, nausea, vomiting, diarrhea, constipation, weakness or fatigue. She has been up and moving around the room. Liver enzymes were noted to be mildly elevated however are trending down. Patient is stable for discharge for labs and vital signs at this time. Status at Discharge
--- NOTE | 2022-11-25 11:49 | PC.NURSE ---
Spoke to pharmacist at patient's preferred pharmacy regarding 90 day supply of midodrine. Patient had receive phone call from pharmacist needing provider's approval. RN called to verify what was needed. Pharmacist stated, the midodrine is typically a hospital medication but I will remove note regarding provider approval. RN repeated statement to pharmacist to confirm that provider approval was not needed.
--- NOTE | 2022-11-26 09:54 | PC.NURSE ---
Patient called this AM regarding persistent symptoms of diarrhea and low blood pressures at home. Patient discharged yesterday. Notified patient if symptoms continue to persist to return to the ER for further evaluation.
== END 2022-11-25 11:43 | disposition home or self-care (01) | DRG 178 ==
LOC: ANHED 10:39 → ANH3MEDSUR 14:54 → ANH2MED 16:18
PROVIDERS: Nurse Practitioner; Admitting Provider Family Medicine; Emergency Provider Physician Assistant; Visit Provider Nurse Practitioner
DX: U07.1 COVID-19 (principal); K50.90 Crohn's disease, unspecified, without complications; N39.0 Urinary tract infection, site not specified; I95.1 Orthostatic hypotension; E78.5 Hyperlipidemia, unspecified; K21.9 Gastro-esophageal reflux disease without esophagitis; F17.210 Nicotine dependence, cigarettes, uncomplicated; Z86.73 Personal history of transient ischemic attack (TIA), and cerebral infarction without residual deficits; Z90.49 Acquired absence of other specified parts of digestive tract
CPT/HCPCS: 36415; 70450; 71046; 72110; 80053; 81001; 83605; 83735; 84443; 84484; 85025; 85055; 85610; 85730; 87040; 87086; 87088; 87636; 93005; 96361; 96365; 96372; 99285; A9270; G0378; J1650; J1956; J7030

== ENCOUNTER 2022-11-29 12:54 | Emergency (ER) | payer MEDICARE, BC, SELFPAY ==
[2022-11-29] VITALS (17 sets, daily range): BP systolic 109–136; BP diastolic 52–86; PULSE 56–76; RESP 12–20; TEMP 36.4; O2SAT 91–100
[2022-11-29 13:27] LABS: Basophils Percent Auto 0.3 % (0.2-1.2); Eosinophils Percent Auto 0.3 % (0-4.4); Hematocrit 40.4 % (37.0-47.0); Hemoglobin 13.4 g/dL (12.0-15.0); Immature Granulocyte Absolute 0.03 K/mm3 (0.00-0.031); Immature Granulocyte Percent A 0.5 % (0-0.5); Immature Platelet Fraction Pct 6.5 % (0.9-11.2); Lymphocytes Absolute Auto 2.16 K/mm3 (0.9-3.2); Lymphocytes Percent Auto 37.1 % (18.3-44.2); Mean Corpuscular HGB Conc 33.2 g/dl (32-36); Mean Corpuscular Hemoglobin 30.8 pg (26-34); Mean Corpuscular Volume 92.9 fl (80-100); Mean Platelet Volume 9.9 fl (7.4-10.4); Monocytes Absolute Auto 0.6 K/mm3 (0.1-0.6); Monocytes Percent Auto 9.8 % (2.6-8.5); Platelet Count Result 123 k/mm3 (150-375); Red Blood Count 4.35 M/mm3 (4.2-5.4); Red Cell Distribution Width 13.5 % (11.5-14.5); White Blood Count 5.8 K/mm3 (4.5-10.0)
[2022-11-29 13:32] LABS: Alanine Aminotransferase 38 U/L (6-35); Albumin Level 4.3 g/dL (3.5-5.1); Alkaline Phosphatase 65 U/L (38-126); Anion Gap 8 mmol/L (8-16); Aspartate Amino Transferase 64 U/L (14-36); Bilirubin,Total 1.8 mg/dL (0.2-1.3); Blood Urea Nitrogen 10 mg/dL (7-17); Calcium 8.5 mg/dL (8.4-10.2); Carbon Dioxide 24 mmol/L (22-30); Chloride 101 mmol/L (98-107); Estimated CRCL calculation 48 ml/min; Estimated Glomerular Filt Rate > 60; Glucose 118 mg/dL (65-110); Lipase 143 U/L (23-300); Potassium 3.8 mmol/L (3.4-5.0); Sodium 133 mmol/L (137-145)
[2022-11-29 13:40] LABS: Appearance Urine Clear (Clear); Bilirubin Urine Negative (Negative); Blood Urine Negative (Negative); Color Urine Yellow (Yellow); Glucose Urine UA Negative (Negative); Ketones Urine Negative (Negative); Leukocyte Esterase Ur Negative LEU/UL (Negative); Nitrate Urine Negative (Negative); Protein Urine Negative (Negative); Urobilinogen Urine 0.2 mg/dL (<2.0)
[2022-11-29 13:54] LABS: Add Urine Microscopic? NO
--- NOTE | 2022-11-29 14:50 | ED.GENADULT ---
HPI - General Adult General Chief complaint: Nausea/Vomiting/Diarrhea <Conor Prieto PA-C - Last Filed: 11/29/22 19:00> Stated complaint: dehydrated ? <Conor Prieto PA-C - Last Filed: 11/29/22 19:00> Time Seen by Provider: 11/29/22 13:13 <Conor Prieto PA-C - Last Filed: 11/29/22 19:00> Source: patient <LIOR Mcmillan Last Filed: 11/29/22 19:00> Mode of arrival: ambulatory <LIOR Mcmillan Last Filed: 11/29/22 19:00> Limitations: no limitations <Conor Prieto PA-C - Last Filed: 11/29/22 19:00> History of Present Illness HPI narrative: This is a 72-year-old female with PMH of Crohn's disease presents to the ED with chief complaint of diarrhea x3 days. Patient states she was recently admitted for COVID and hypotension. She was discharged 5 days ago. She states that this does not feel like her Crohn's. She states it has been well controlled with Remicade shots monthly. Denies any nausea or vomiting. Denies abdominal pain or bloody diarrhea. She states the stools have just been loose. Endorses 10 episodes of loose stools for the past 3 days. She does specifically mention that it feels like the diarrhea started after she started Levaquin for a UTI that they diagnosed in the hospital. States she stopped this medication yesterday and states that it has let up today. Denies any fevers, chills, chest pain, shortness of breath, cough. <LIOR Mcmillan Last Filed: 11/29/22 19:00> Related Data Home medications: Home Medications Medication Instructions Recorded Confirmed atorvastatin 80 mg tablet 80 mg PO HS 08/14/22 11/23/22 clopidogrel 75 mg tablet 75 mg PO HS 08/14/22 11/23/22 pantoprazole 20 mg tablet,delayed 20 mg PO DAILY 08/14/22 11/23/22 release aspirin 81 mg capsule 81 mg PO DAILY 09/21/22 11/23/22 cholecalciferol (vitamin D3) 25 25 mcg PO DAILY 11/23/22 11/23/22 mcg (1,000 unit) tablet fexofenadine 180 mg tablet 180 mg PO DAILY PRN Allergy 11/23/22 11/23/22 Symptoms fluticasone propionate 50 1 spray intranasal DAILY 11/23/22 11/23/22 mcg/actuation nasal spray,suspension infliximab 100 mg intravenous 100 mg IV [id number] 11/23/22 11/23/22 solution multivitamin with minerals-folic 1 tablet PO DAILY 11/23/22 11/23/22 acid 0.4 mg tablet pseudoephedrine HCl 60 mg tablet 60 mg PO Q4-6H PRN sinus congestion 11/23/22 11/23/22 <Conor Prieto PA-C - Last Filed: 11/29/22 19:00> Allergies/adverse reactions: Allergies Allergy/AdvReac Type Severity Reaction Status Date / Time Penicillins Allergy Unknown Unknown Verified 11/29/22 13:21 <Conor Prieto PA-C - Last Filed: 11/29/22 19:00> Review of Systems Review of Systems: CONSTITUTIONAL: Denies fever, chills, or sweats. EYES: Denies visual changes, redness, or discharge. ENT: Denies rhinorrhea, congestion, sore throat, or otalgia. CARDIOVASCULAR: Denies chest pain, palpitations, or edema. RESPIRATORY: Denies cough or dyspnea. GASTROINTESTINAL: See HPI GENITOURINARY: Denies dysuria or hematuria. SKIN: Denies rash or itching. MUSCULOSKELETAL: Denies back pain, joint pain, or myalgia. NEUROLOGIC: Denies headache, numbness, dizziness, or weakness. PSYCHIATRIC: Denies anxiety or depression. <Conor Prieto PA-C - Last Filed: 11/29/22 19:00> [facility] Past Medical History Medical History: Medical History (Updated 12/01/22 @ 00:00 by Martínez Grace) Carpal tunnel syndrome Crohn disease CVA (cerebral vascular accident) GERD (gastroesophageal reflux disease) History of TIA (transient ischemic attack) HLD (hyperlipidemia) Shoulder fracture, left <LIOR Mcmillan Last Filed: 11/29/22 19:00> Surgical History Surgical History: Surgical History (Updated 11/23/22 @ 19:18 by Karmen Belcher NP) H/O cardiac radiofrequency ablation H/O cataract extraction History of appendectomy History of colon resection x2 due to Crohn's disease <LIOR Mcmillan L
[2022-11-29] MEDS: SODIUM CHLORIDE 0.9% IV 1,000 ML 999 ML IV CONT (15:02)
[2022-11-29 16:58] LABS: Magnesium 1.8 mg/dL (1.6-2.3)
== END 2022-11-29 18:30 | disposition home or self-care (01) ==
PROVIDERS: Emergency Medicine; Emergency Provider Physician Assistant
DX: R19.7 Diarrhea, unspecified (principal); E78.5 Hyperlipidemia, unspecified; F17.210 Nicotine dependence, cigarettes, uncomplicated; Z86.73 Personal history of transient ischemic attack (TIA), and cerebral infarction without residual deficits
CPT/HCPCS: 36415; 80053; 81003; 83690; 83735; 85025; 85055; 96360; 99283; J7030

== ENCOUNTER 2022-11-30 14:05 | Emergency (ER) | payer MEDICARE, BC, SELFPAY ==
[2022-11-30 14:12] VITALS: BP 112/64; PULSE 62; RESP 18; TEMP 36.8; O2SAT 97
[2022-11-30] MEDS: ONDANSETRON HCL ODT 4 MG TABLET PO (15:55)
[2022-11-30 16:06] LABS: Basophils Percent Auto 0.2 % (0.2-1.2); Eosinophils Percent Auto 0.6 % (0-4.4); Hematocrit 36.6 % (37.0-47.0); Hemoglobin 12.2 g/dL (12.0-15.0); Immature Granulocyte Absolute 0.04 K/mm3 (0.00-0.031); Immature Granulocyte Percent A 0.8 % (0-0.5); Immature Platelet Fraction Pct 6.5 % (0.9-11.2); Lymphocytes Absolute Auto 2.03 K/mm3 (0.9-3.2); Lymphocytes Percent Auto 38.3 % (18.3-44.2); Mean Corpuscular HGB Conc 33.3 g/dl (32-36); Mean Corpuscular Hemoglobin 30.9 pg (26-34); Mean Corpuscular Volume 92.7 fl (80-100); Monocytes Absolute Auto 0.5 K/mm3 (0.1-0.6); Monocytes Percent Auto 9.2 % (2.6-8.5); Neutrophils Absolute Auto 2.7 K/mm3 (1.3-6.7); Neutrophils Percent Auto 50.9 % (45.5-73.1); Platelet Count Result 136 k/mm3 (150-375); Red Blood Count 3.95 M/mm3 (4.2-5.4); Red Cell Distribution Width 13.6 % (11.5-14.5); White Blood Count 5.3 K/mm3 (4.5-10.0)
[2022-11-30 16:15] LABS: Alanine Aminotransferase 30 U/L (6-35); Albumin Level 3.7 g/dL (3.5-5.1); Alkaline Phosphatase 66 U/L (38-126); Anion Gap 4 mmol/L (8-16); Aspartate Amino Transferase 47 U/L (14-36); Bilirubin,Total 1.4 mg/dL (0.2-1.3); Blood Urea Nitrogen 8 mg/dL (7-17); Calcium 7.9 mg/dL (8.4-10.2); Carbon Dioxide 26 mmol/L (22-30); Chloride 102 mmol/L (98-107); Estimated Glomerular Filt Rate > 60; Glucose 99 mg/dL (65-110); Potassium 3.2 mmol/L (3.4-5.0); Sodium 132 mmol/L (137-145)
--- NOTE | 2022-11-30 16:39 | ED.GENADULT ---
HPI - General Adult General Chief complaint: Nausea/Vomiting/Diarrhea Stated complaint: diarrhea Time Seen by Provider: 11/30/22 15:32 History of Present Illness HPI narrative: Patient is a 72-year-old female who presents ER with diarrhea. 3 episodes today. She has been having diarrhea for several days and was seen in the ER yesterday. She has been on Levaquin. She currently has COVID. No fevers or chills or sweats. No cough or dyspnea. No additional concerns. She has not tried Imodium. No blood in her stool. Related Data Home Medications Medication Instructions Recorded Confirmed atorvastatin 80 mg tablet 80 mg PO HS 08/14/22 11/23/22 clopidogrel 75 mg tablet 75 mg PO HS 08/14/22 11/23/22 pantoprazole 20 mg tablet,delayed 20 mg PO DAILY 08/14/22 11/23/22 release aspirin 81 mg capsule 81 mg PO DAILY 09/21/22 11/23/22 cholecalciferol (vitamin D3) 25 25 mcg PO DAILY 11/23/22 11/23/22 mcg (1,000 unit) tablet fexofenadine 180 mg tablet 180 mg PO DAILY PRN Allergy 11/23/22 11/23/22 Symptoms fluticasone propionate 50 1 spray intranasal DAILY 11/23/22 11/23/22 mcg/actuation nasal spray,suspension infliximab 100 mg intravenous 100 mg IV [id number] 11/23/22 11/23/22 solution multivitamin with minerals-folic 1 tablet PO DAILY 11/23/22 11/23/22 acid 0.4 mg tablet pseudoephedrine HCl 60 mg tablet 60 mg PO Q4-6H PRN sinus congestion 11/23/22 11/23/22 Allergies Allergy/AdvReac Type Severity Reaction Status Date / Time Penicillins Allergy Unknown Unknown Verified 11/29/22 13:21 Review of Systems Review of Systems: All systems reviewed & are unremarkable except as noted in HPI and below Constitutional: Constitutional: Denies chills, Denies fatigue and Denies fever(s) ENT: Denies nasal congestion and Denies sore throat Respiratory: Respiratory: Denies cough and Denies dyspnea Gastrointestinal: Gastrointestinal: Denies abdominal pain, Reports diarrhea, Reports nausea and Denies vomiting PMF Past Medical History Medical History (Updated 11/30/22 @ 16:41 by Pranay Ray MD) Carpal tunnel syndrome Crohn disease CVA (cerebral vascular accident) GERD (gastroesophageal reflux disease) History of TIA (transient ischemic attack) HLD (hyperlipidemia) Shoulder fracture, left Surgical History Surgical History (Updated 11/23/22 @ 19:18 by Karmen Belcher NP) H/O cardiac radiofrequency ablation H/O cataract extraction History of appendectomy History of colon resection x2 due to Crohn's disease Family History Family History Father Heart disease Sibling Heart disease Diabetes mellitus Social History Social History (Updated 11/23/22 @ 19:20 by Karmen Belcher NP) Social History: she smoked 3-4 cigarettes a cig a day . She has 1 adopted daughter . she is . She is retired from [email or web address] in [facility] . code status full code Years smoked: 30 Smoking status: Current every day smoker Tobacco type: cigarettes Alcohol intake: current Drinks per week: 4 Alcohol use details: occ Substance use: never Lack of Transportation: No Lack of Food: Never True Current Housing: I Have Housing Concerned About Future Housing: No Difficulty Paying Gas/Electric Bills: No Difficulty Paying for Meds: No Currently Unemployed: No Education: High School Diploma/GED Difficulty w/ Childcare or Family Care: No Spiritual care concerns: No Exam Narrative: GENERAL: Well-appearing, well-nourished, and in no acute distress. HEAD: Normocephalic, atraumatic. CHEST: Clear to auscultation. No respiratory distress. HEART: Regular rate and rhythm. Normal peripheral pulses. ABDOMEN: Soft, nontender, nondistended. EXTREMITIES: Normal range of motion. No edema. SKIN: Warm, dry, no rash. NEURO: Alert and oriented x3. PSYCH: Normal mood and affect. Course Course Emergency Course: Hui
== END 2022-11-30 17:00 | disposition home or self-care (01) ==
PROVIDERS: Emergency Provider Emergency Medicine
DX: U07.1 COVID-19 (principal); R19.7 Diarrhea, unspecified; K50.90 Crohn's disease, unspecified, without complications; E78.5 Hyperlipidemia, unspecified; K21.9 Gastro-esophageal reflux disease without esophagitis; F17.210 Nicotine dependence, cigarettes, uncomplicated; Z86.73 Personal history of transient ischemic attack (TIA), and cerebral infarction without residual deficits; Z98.49 Cataract extraction status, unspecified eye; Z90.49 Acquired absence of other specified parts of digestive tract; Z79.82 Long term (current) use of aspirin; R11.0 Nausea
CPT/HCPCS: 36415; 80053; 85025; 85055; 99283; A9270